=== PATIENT | female | born 1980 | race African-American/Black ===

== ENCOUNTER 2020-05-08 17:40 | Emergency (ER) | payer BC, SELFPAY ==
--- NOTE | ~2020-05-08 | CT_ITS ---
EXAMINATION: CT brain wo con DATE: 05/08/2020 20:39 INDICATION: Persistent headache TECHNIQUE: Computed tomography (CT) of the head was performed without intravenous contrast. Sagittal and coronal reconstructions were performed. The mA was adjusted according to patient size. Iterative reconstruction technique was employed. The dose-length product was 605.33 mGy-cm. COMPARISON: CT sinuses dated 11/17/2012 FINDINGS: No acute intracranial hemorrhage, acute infarction or abnormal extra axial fluid collection. Ventricl es are normal and symmetric. No mass/mass effect. The orbits, paranasal sinuses and mastoid air cells are normal. Unchanged dural ossification along the falx. IMPRESSION: 1. Normal brain. No acute intracranial process. Reviewed, dictated and finalized at location A. [employer]
[2020-05-08 17:53] VITALS: BP 116/76; PULSE 99; RESP 20; TEMP 37.2; O2SAT 98
--- NOTE | 2020-05-08 20:28 | ED.HA ---
HPI - Headache General Chief Complaint: Headache Stated Complaint: KIRKPATRICK Time Seen by Provider: 05/08/20 19:57 Source: patient Mode of arrival: ambulatory Limitations: no limitations History of Present Illness HPI Narrative: A 39-year-old female presents to the emergency department with complaints of a persistent headache. The patient states that this has been going on for the last couple of months. She states she has tried everything and is not getting any relief. Patient even notes today that she has taken in total 1600 mg of ibuprofen, several Tylenol, different muscle relaxers, tramadol and Fioricet. She states none of these have worked to phase her headache. Related Data Home Medications Medication Instructions Recorded Confirmed biotin 10,000 mcg disintegrating 10,000 mcg PO DAILY 05/16/19 tablet cetirizine 10 mg capsule 10 mg PO DAILY 05/16/19 cyanocobalamin (vitamin B-12) 100 mcg SUB-Q MONTHLY 05/16/19 1,000 mcg/mL injection kit esomeprazole magnesium 20 mg 20 mg PO DAILY 05/16/19 capsule,delayed release etonogestrel 0.12 mg-ethinyl 1 vag ring VAGINAL ONCE 05/16/19 estradiol 0.015 mg/24 hr vaginal ring Allergies Allergy/AdvReac Type Severity Reaction Status Date / Time No Known Allergies Allergy Verified 05/08/20 19:51 Review of Systems Review of Systems: Narrative: CONSTITUTIONAL: Denies fever, chills, or sweats. EYES: Denies visual changes, redness, or discharge. ENT: Denies rhinorrhea, congestion, sore throat, or otalgia. CARDIOVASCULAR: Denies chest pain, palpitations, or edema. RESPIRATORY: Denies cough or dyspnea. GASTROINTESTINAL: Denies abdominal pain, nausea, vomiting, or diarrhea. GENITOURINARY: Denies dysuria or hematuria. SKIN: Denies rash or itching. MUSCULOSKELETAL: Denies back pain, joint pain, or myalgia. NEUROLOGIC: Denies numbness, dizziness, or weakness. Endorses KIRKPATRICK. PSYCHIATRIC: Denies anxiety or depression. 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 HEAD: Normocephalic, atraumatic. EYES: PERRLA and EOMI. ENT: Nares clear, no rhinorrhea or epistaxis. Mucous membranes moist. Oropharynx without tonsillar hypertrophy exudate or other lesions. Bilateral TMs pearly nolasco nonbulging NECK: Supple. No adenopathy or masses. No carotid bruits or JVD CHEST: Clear to auscultation. No respiratory distress. No wheezes rales or rhonchi HEART: Regular rate and rhythm. No murmur heard. Normal peripheral pulses. ABDOMEN: Soft, nontender, nondistended, normal active bowel sounds. EXTREMITIES: Normal range of motion. No edema. SKIN: Warm, dry, no rash. NEURO: No focal deficits. Alert and oriented x3. PSYCH: Normal mood and affect. Course Reevaluation(s) Reevaluation #1: Patient was resting comfortably. I went to go evaluate and update her. Informed her of her negative CT findings. Patient stated that actually her headache was approximately 50% better. It is unclear if it was the medicines that I had given or the suboccipital release, osteopathic treatment that I administered. Patient noted either way she was feeling much better and needed to get home to her children. Time: 21:17 Vital Signs Vital signs: Vital Signs Temperature 37.2 C 05/08/20 17:53 Pulse Rate 99 05/08/20 17:53 Respiratory Rate 20 05/08/20 17:53 Blood Pressure 116/76 05/08/20 17:53 Pulse Oximetry 98 05/08/20 17:53 Temperature 37.2 C 05/08/20 17:53 Pulse Rate 73 05/08/20 20:58 Respiratory Rate 15 05/08/20 20:58 Blood Pressure 101/75 05/08/20 20:58 Pulse Oximetry 98 05/08/20 20:58 MDM - Headache MDM Narrative Medical decision making narrative: In brief this is a 39-year-old female who presented to the emergency department with complaints o
[2020-05-08] MEDS: diphenhydrAMINE HCl INJ 50 MG/ML VIAL 25 MG IV PUSH (20:57)
[2020-05-08] MEDS: KETOROLAC 30 MG/ML VIAL (*BKC) IV PUSH (20:57)
[2020-05-08] MEDS: PROCHLORPERAZINE EDISYLATE 10 MG/2 ML VIAL 5 MG IV PUSH (20:57)
[2020-05-08 20:58] VITALS: BP 101/75; PULSE 73; RESP 15; O2SAT 98
[2020-05-08] MEDS: LACTATED RINGERS 1,000 ML 999 ML IV CONT (20:58)
[2020-05-08 21:36] VITALS: BP 112/73; PULSE 71; RESP 15; O2SAT 97
== END 2020-05-08 21:37 | disposition home or self-care (01) ==
PROVIDERS: Emergency Provider Emergency Medicine; PCP Family Medicine
DX: G44.209 Tension-type headache, unspecified, not intractable (principal)
CPT/HCPCS: 70450; 81025; 96361; 96374; 96375; 99284; J0780; J1200; J1885; J7120

== ENCOUNTER 2021-12-28 13:58 | Emergency (ER) | payer OTHER, BC, SELFPAY ==
--- NOTE | ~2021-12-28 | XR_ITS ---
EXAM: XR knee LT min 4V DATE: 12/28/2021 14:22 HISTORY: FALL, LT KNEE PAIN . COMPARISON: None available. FINDINGS: Normal mineralization. No fracture or dislocation. No lytic or blastic lesion. Mild tricom partmental osteoarthritis. No erosion or periosteal change. Soft tissues within normal limits. Small volume left knee joint effusion. IMPRESSION: No acute osseous finding in the left knee. Reviewed, dictated and finalized at location K.
[2021-12-28 14:11] VITALS: BP 112/75; PULSE 94; RESP 16; TEMP 36.7; O2SAT 99
--- NOTE | 2021-12-28 14:41 | ED.LOWEXIN ---
HPI - Extremity Injury (Lower) General Chief Complaint: Extremity Injury, Lower Stated Complaint: Fall Injury Left Knee Pain Time Seen by Provider: 12/28/21 14:41 History of Present Illness HPI Narrative: Mary Quesada is a 40 yo female with hypothyroid and GERD who [facility] after a fall on night and hurt Left knee-has been wearing a brace since then Related Data Home Medications Medication Instructions Recorded Confirmed cetirizine 10 mg capsule (Zyrtec) 10 mg PO DAILY 05/16/19 12/28/21 cyanocobalamin (vitamin B-12) 100 mcg subcut MONTHLY 05/16/19 12/28/21 1,000 mcg/mL injection kit esomeprazole magnesium 20 mg 20 mg PO DAILY 05/16/19 12/28/21 capsule,delayed release (Nexium) etonogestrel 0.12 mg-ethinyl 1 vag ring vaginal ONCE 05/16/19 12/28/21 estradiol 0.015 mg/24 hr vaginal ring (NuvaRing) Allergies Allergy/AdvReac Type Severity Reaction Status Date / Time No Known Allergies Allergy Verified 12/28/21 14:12 Review of Systems Review of Systems: CONSTITUTIONAL: Denies fever, chills, sweats. EYES: Denies visual changes, redness, discharge. ENT: Denies rhinorrhea, congestion, sore throat, otalgia. CARDIOVASCULAR: Denies chest pain, palpitations, edema. RESPIRATORY: Denies dyspnea, wheezing, cough GASTROINTESTINAL: Denies abdominal pain, nausea, vomiting, diarrhea. GENITOURINARY: Denies dysuria, hematuria, abnormal discharge SKIN: Denies rash or itching. NEUROLOGIC: Denies numbness, or focal weakness. PSYCHIATRIC: Denies anxiety or depression. 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 There is no relevant family history pertinent to the presenting complaint. Exam Narrative: GENERAL: This is a well-nourished, well-developed patient, in mild distress. HEAD: normocephalic, atraumatic. EYES: PERRL. Sclera clear/white. Vision is grossly intact. EARS: External ears normal, auditory canals clear and without drainage, TMs normal without perforation. Hearing grossly intact. NOSE: External nose normal without nasal discharge, nares without redness, no rhinorrhea. THROAT: Mucous membranes moist, posterior pharynx NECK: Neck supple, non-tender CARDIOVASCULAR: Regular rate and rhythm without murmurs, gallops, or rubs. RESPIRATORY: Clear to auscultation. Breath sounds equal bilaterally. No wheezes, rales, or rhonchi. GASTROINTESTINAL: Abdomen soft, non-tender, SKIN: warm, intact with no suspicious lesions or rash, good texture and turgor. NEURO: awake, alert, and oriented to person, place and time. There were no obvious focal neurologic abnormalities. Steady gait EXTREMITIES: Normal range of motion. Left extension of knee to about 135, flex to 90 degrees, pain in both the medial and lateral side of patella BACK: Nontender without deformity Course Course Emergency Course: Patient fell left on and states that her leg twisted when she fell on night has pain on the medial and lateral side of the patella and cannot fully extend her flex knee X-ray negative for osseous finding To continue to use knee brace and RICE and if does not improve to follow-up with orthopedic referral Level of Care: Express Care Visit Vital Signs Vital signs: Vital Signs Temperature 98.1 F 12/28/21 14:11 Pulse Rate 94 12/28/21 14:11 Respiratory Rate 16 12/28/21 14:11 Blood Pressure 112/75 12/28/21 14:11 Pulse Oximetry 99 12/28/21 14:11 Oxygen
== END 2021-12-28 15:10 | disposition home or self-care (01) ==
PROVIDERS: Emergency Provider Nurse Practitioner; PCP Family Medicine
DX: S83.92XA Sprain of unspecified site of left knee, initial encounter (principal); W19.XXXA Unspecified fall, initial encounter; E03.9 Hypothyroidism, unspecified; E28.2 Polycystic ovarian syndrome; E66.9 Obesity, unspecified; Z68.32 Body mass index [BMI] 32.0-32.9, adult
CPT/HCPCS: 73564; 99213; G0463

== ENCOUNTER 2022-08-13 10:12 | Emergency (ER) | payer BC, SELFPAY ==
--- NOTE | ~2022-08-13 | XR_ITS ---
XR knee RT 3V DATE: 08/13/2022 11:15 INDICATION: Right knee pain. No injury. TECHNIQUE: AP, lateral, sunrise views COMPARISON: None FINDINGS: There is prominent distention of the suprapatellar bursa consistent with knee joint effusio n. No fracture or dislocation, periosteal reaction or bone destruction. There is slight periarticular sp urring of the medial tibial plateau consistent with mild osteoarthritis. IMPRESSION: Prominent knee joint effusion Mild medial compartment osteoarthritis Reviewed, dictated and finalized at location B.
[2022-08-13 10:31] VITALS: BP 97/69; PULSE 88; RESP 12; TEMP 36.5; O2SAT 99
--- NOTE | 2022-08-13 10:45 | ED.EXTPRO ---
HPI - Extremity Problem General Chief complaint: Extremity Problem,Nontraumatic Stated complaint: right knee pain Time Seen by Provider: 08/13/22 10:45 Source: patient Mode of arrival: ambulatory Limitations: no limitations History of Present Illness HPI Narrative: 42-year-old female presented for complaint right knee pain since yesterday. Denies injury. States she felt mild pain during routine exercise yesterday. States she was able to walk throughout the day yesterday but felt some mild popping, and woke today with worse pain. Rates pain 6/10 at rest, 10/10 with ambulating. Feels like she cannot bear weight. Also states she had a large knot to the lateral aspect, which has improved. Pain is located to the medial aspect. Denies swelling, numbness, tingling, or weakness of the extremity. She has applied ice, used a knee brace, and is taking Tylenol and ibuprofen. Related Data Home Medications Medication Instructions Recorded Confirmed cetirizine 10 mg capsule (Zyrtec) 10 mg PO DAILY 05/16/19 12/28/21 cyanocobalamin (vitamin B-12) 100 mcg subcut MONTHLY 05/16/19 12/28/21 1,000 mcg/mL injection kit esomeprazole magnesium 20 mg 40 mg PO BID 05/16/19 12/28/21 capsule,delayed release (Nexium) etonogestrel 0.12 mg-ethinyl 1 vag ring vaginal ONCE 05/16/19 12/28/21 estradiol 0.015 mg/24 hr vaginal ring (NuvaRing) metformin 500 mg tablet,extended mg PO 08/13/22 08/13/22 release 24 hr semaglutide (weight loss) 0.5 mg subcut 08/13/22 08/13/22 mg/0.5 mL subcutaneous pen injector (Wegovy) ursodiol 300 mg capsule mg 08/13/22 08/13/22 Allergies Allergy/AdvReac Type Severity Reaction Status Date / Time No Known Allergies Allergy Verified 08/13/22 10:35 Review of Systems Review of Systems: CONSTITUTIONAL: Denies body aches, fever, chills EYES: Denies visual changes ENT: Denies rhinorrhea, congestion CARDIOVASCULAR: Denies chest pain, palpitations, or edema. RESPIRATORY: Denies cough or dyspnea. GASTROINTESTINAL: Denies abdominal pain, nausea, vomiting, or diarrhea. SKIN: Denies rash, itching, or wounds. MUSCULOSKELETAL: Per HPI NEUROLOGIC: Denies headache, numbness, tingling, or weakness. 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 Please see nursing chart for further information. There is no relevant family history pertinent to the presenting complaint Exam Narrative: GENERAL: Appears in pain; in no acute distress. HEAD: Normocephalic, atraumatic. EYES: PERRLA, conjunctivae clear NECK: Supple. CHEST: Speaks in full sentences. No respiratory distress. HEART: Regular rate and rhythm. Normal and equal peripheral pulses. EXTREMITIES: Right medial knee tender with palpation. RLE has normal strength and sensation, slightly limited range of motion at knee with flexion/extension due to pain, endorses medial knee pain with internal foot rotation. No swelling or ecchymosis, No open wounds, or obvious deformity; alignment normal, pulse palpable and equal bilaterally, skin warm, dry, pink. Capillary refill less than 3 seconds. Ambulates with limp. SKIN: Warm, dry, no rash. NEURO: Alert and oriented x3. PSYCH: Normal mood and affect Course Course Emergency Course: Patient is aware of diagnosis, understands and agrees to treatment plan. Anticipatory guidance given. Patient agrees to
== END 2022-08-13 11:33 | disposition home or self-care (01) ==
PROVIDERS: Emergency Provider Nurse Practitioner Family; PCP Family Medicine
DX: M25.561 Pain in right knee (principal); E03.9 Hypothyroidism, unspecified; E28.2 Polycystic ovarian syndrome; E66.9 Obesity, unspecified; Z68.31 Body mass index [BMI] 31.0-31.9, adult
CPT/HCPCS: 73562; 99213; G0463

== ENCOUNTER → 2023-02-02 13:32 | Outpatient (CLI) | payer BC, SELFPAY ==
--- NOTE | ~2023-02-02 | US_ITS ---
EXAMINATION: US transvaginal DATE: 02/02/2023 14:21 INDICATION: Left lower quadrant pain. History of cysts. Comparison:No prior studies for comparison. TECHNIQUE: Multiple endovaginal sonographic images of the pelvis performed. FINDINGS: The uterus measures 7.4 x 3.1 x 4.2 cm. There is trace fluid in the endometrium. The endome trial complex measures 4 mm. The right ovary is not visualized. Left ovary measures 2.9 x 2.6 x 2 cm. There is a 2.5 cm left ovari an cyst. There is no free fluid in the pelvis. There are no abnormal masses seen on either side. IMPRESSION: 1. Left ovarian cyst measuring 2.5 cm. Reviewed, dictated and finalized at location B.
== END ==
PROVIDERS: PCP Family Medicine; Visit Provider Advanced Practice Midwife
DX: R10.32 Left lower quadrant pain (principal); N83.202 Unspecified ovarian cyst, left side
CPT/HCPCS: 76830

== ENCOUNTER → 2023-04-23 13:15 | Outpatient (CLI) | payer BC, SELFPAY ==
--- NOTE | ~2023-04-23 | MM_ITS ---
EXAMINATION: MM screening jagjit BI w preet HISTORY: Screening mammogram TECHNIQUE: Craniocaudal and mediolateral oblique 3-D tomosynthesis images were obtained and synthetic 2-D images were generated. CAD analysis was submitted and interpreted. COMPARISON: No prior mammogram is available for comparison at this institution. BREAST PARENCHYMAL COMPOSITION: The breasts are almost entirely fatty. FINDINGS: There is no evidence of suspicious mass, calcification, or architectural distortion to sugg est malignancy in either breast. There has been no suspicious interval change. IMPRESSION: 1. No mammographic evidence of malignancy. 2. Recommend routine screening mammography in one year. BI-RADS Category 1: Negative Reviewed, dictated and finalized at location A. [employer]
== END ==
PROVIDERS: PCP Obstetrics & Gynecology Gynecology; Visit Provider Obstetrics & Gynecology Gynecology
DX: Z12.31 Encounter for screening mammogram for malignant neoplasm of breast (principal)
CPT/HCPCS: 77063; 77067

== ENCOUNTER 2023-09-02 14:50 | Emergency (ER) | payer BC, SELFPAY ==
[2023-09-02 15:00] VITALS: BP 103/81; PULSE 84; RESP 16; TEMP 36.8; O2SAT 98
--- NOTE | 2023-09-02 15:00 | ED.EYEPROB ---
HPI - Eye Problem General Chief complaint: Eye Problems Stated complaint: Eyes Irritation Time Seen by Provider: 09/02/23 14:52 Source: patient Mode of arrival: ambulatory Limitations: no limitations History of Present Illness HPI Narrative: Radha is a 43-year-old female patient presenting to the clinic today with complaints eye irritation that just started last night. She reports she is having some white discharge coming from the bilateral eyes with irritation and redness. Does report some congestion. Eyes were matted shut this morning. No fever or chills Related Data Home Medications Medication Instructions Recorded Confirmed cetirizine 10 mg capsule (Zyrtec) 10 mg PO DAILY 05/16/19 12/28/21 cyanocobalamin (vitamin B-12) 100 mcg subcut MONTHLY 05/16/19 12/28/21 1,000 mcg/mL injection kit esomeprazole magnesium 20 mg 40 mg PO BID 05/16/19 12/28/21 capsule,delayed release (Nexium) etonogestrel 0.12 mg-ethinyl 1 vag ring vaginal ONCE 05/16/19 12/28/21 estradiol 0.015 mg/24 hr vaginal ring (NuvaRing) metformin 500 mg tablet,extended mg PO 08/13/22 08/13/22 release 24 hr semaglutide (weight loss) 0.5 mg subcut 08/13/22 08/13/22 mg/0.5 mL subcutaneous pen injector (Wegovy) ursodiol 300 mg capsule mg 08/13/22 08/13/22 levothyroxine 75 mcg tablet mcg 09/02/23 (Synthroid) montelukast 10 mg tablet mg 09/02/23 ursodiol 500 mg tablet mg 09/02/23 Allergies Allergy/AdvReac Type Severity Reaction Status Date / Time No Known Allergies Allergy Verified 09/02/23 15:01 Review of Systems Review of Systems: Pertinent positives per HPI. Patient denies any fever, chills, rash, headache, visual changes, dizziness, cough, shortness of breath, chest pain, palpitations, nausea, vomiting, diarrhea, constipation, abdominal pain, or any urinary issues. 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 There is no relevant family history pertinent to the patient complaint. Exam Narrative: General: Well-developed, well nourished, in no apparent distress Head: Normocephalic, atraumatic Eyes: Pupils equally round and reactive to light bilaterally, EOM intact, sclera and conjunctive injected bilaterally, bilateral lid swelling, whitish yellow mucopurulent discharge Ears: TMs intact and clear, ear canals clear, no drainage, grossly hearing normal. Nose: Nares patent, no discharge, no inflammation, no sinus tenderness. Mouth: Oral pharynx without lesions or masses, good dentition, MMM. Neck: Supple, trachea midline, no enlargement of anterior or posterior cervical nodes, no thyroid masses or goiter palpable. Cardio: Regular rate and rhythm, s1 and s2 normal, no murmur appreciated. Resp: Clear to auscultation bilaterally, no rhonchi, rales, wheezing or rubs Course Course Emergency Course: Portions of this record may have been created with voice recognition software. Level of Care: Express Care Visit Vital Signs Vital signs: Vital signs reviewed MDM - Eye Problem MDM Narrative Medical decision making narrative: At the time of visit patient is resting comfortably on the exam table. Patient appears to be nontoxic. Plan: I suspect patient has conjunctivitis. Prescription for Polytrim eyedrops was sent to the pharmacy. Supportive measures were discussed with the patient and they voiced understanding discharge instructions and agrees to treatment plan. Return
== END 2023-09-02 15:14 | disposition home or self-care (01) ==
PROVIDERS: Emergency Provider Nurse Practitioner Family; PCP Obstetrics & Gynecology Gynecology
DX: H10.33 Unspecified acute conjunctivitis, bilateral (principal); E03.9 Hypothyroidism, unspecified; E66.9 Obesity, unspecified; Z68.30 Body mass index [BMI] 30.0-30.9, adult; E28.2 Polycystic ovarian syndrome
CPT/HCPCS: 99213; G0463

== ENCOUNTER 2024-06-03 12:05 | Emergency (ER) | payer BC, SELFPAY ==
[2024-06-03 12:21] VITALS: BP 122/69; PULSE 88; RESP 16; TEMP 37.2; O2SAT 100
--- NOTE | 2024-06-03 13:07 | ED.GENADULT ---
HPI - General Adult General Chief complaint: Shortness of Breath/Dyspnea Stated complaint: chest pain,SOB Time Seen by Provider: 06/03/24 13:44 Source: patient, RN notes reviewed and old records reviewed Mode of arrival: ambulatory Limitations: no limitations History of Present Illness HPI narrative: Patient presents with complaints of chest wall pain that has been intermittent for the past 3-4 days. She reports that pain is reproducible with palpation. Pain is not related to activity or food intake. Patient states that she is not having this pain at all today. She does report chronic asthma cough. Says that this does not seem to contribute to her discomfort. She is not in any distress Related Data Home Medications ?Medication ?Instructions ?Recorded ?Confirmed ?Last Taken ?Type cetirizine 10 mg capsule (Zyrtec) 10 mg PO DAILY 05/16/19 09/02/23 Unknown History esomeprazole magnesium 20 mg 40 mg PO BID 05/16/19 09/02/23 Unknown History capsule,delayed release (Nexium) etonogestrel 0.12 mg-ethinyl 1 vag ring vaginal ONCE 05/16/19 09/02/23 Unknown History estradiol 0.015 mg/24 hr vaginal ring (NuvaRing) metformin 500 mg tablet,extended 500 mg PO DAILY 08/13/22 09/02/23 Unknown History release 24 hr montelukast 10 mg tablet 10 mg PO DAILY 09/02/23 09/02/23 Unknown History ursodiol 500 mg tablet 500 mg PO DAILY 09/02/23 09/02/23 Unknown History cyanocobalamin (vitamin B-12) 100 mcg subcut WEEKLY 12/18/23 Unknown History 1,000 mcg/mL injection solution fenofibrate 160 mg tablet mg 06/03/24 Unknown History Allergies Allergy/AdvReac Type Severity Reaction Status Date / Time No Known Allergies Allergy Verified 06/03/24 12:23 Review of Systems Review of Systems: All systems reviewed & are unremarkable except as noted in HPI and below Constitutional: Constitutional: Reports no additional constitutional complaints ENT: Reports system reviewed and no additional complaints, except as documented Cardiovascular: Cardiovascular: Reports no additional cardiovascular complaints Respiratory: Respiratory: Reports no additional respiratory complaints Gastrointestinal: Gastrointestinal: Reports no additional gastrointestinal complaints Musculoskeletal: Musculoskeletal: Reports as per HPI [facility] Past Medical History Medical History Red blood cell antibody positive, 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 There is no relevant family history pertinent to the patient complaint. Exam Const: General: cooperative, no acute distress, alert and awake Orientation/consciousness: oriented to person, oriented to place and oriented to time HENMT: Head: normal to inspection Resp: Effort & Inspection: normal respiratory effort and able to speak in complete sentences Auscultation: clear to auscultation bilaterally, no crackles, no rales, no rhonchi and no wheezes Cardio: Palpation: normal PMI Rate: regular rate Rhythm: regular rhythm Heart sounds: S1 normal heart sound present and S2 normal heart sound present GI: Abdomen image:  1. Tenderness on palpation, patient states this is what she has been feeling for the past 3-4 days Neuro: General: oriented to person, oriented to place and oriented to time Cranial nerves: Yes CN's II-XII intact bilaterally Psych: Appearance: grossly normal Thought process: Normal thought process present Insight: Good insight present (Psych) Judgement: Good judgement present (Psych) Course Course Level of Care: Express Care Visit Vital Signs Vital signs: Vital Signs Temperature 99.0 F 06/03/24 12:21 Pulse Rate 88 06/03/24 12:21 Respiratory Rate 16 06/03/24 12:21 Blood Pressure 122/69 06/03/24 12:21 Pulse Oximetry 100 06/03/24 12:21 Oxygen Delivery Room Air 06/03/24 12:21 Temperature 99.0 F 06/03/24 12:21 Pulse Rate 88 06/03/24 12:21 Respiratory Rate 16 06/03/24 12:21 Blood Pressure 122/69 06/03/24 12:21 Pulse Oximetry 100 06/03/24 12:21 Oxygen Delivery Room Air 06/03/24 12:21 Reviewed Medical Decision Making MDM Narrative Medical decision making narrative: Discussed with patient that reproducible chest pain is very reassuring. She be him it will E denies having any chest pain at this time. She is advised that if she develops chest pain she should immediately call 911 and proceed to nearest emergency department Discharge instructions reviewed with patient, as well as provided in writing per nursing staff. The instructions also include specific and strict return/GO TO THE ER as well as f/u information. All questions have been answered, and the patient deny any further questions with discharge and discharge plan. Some parts of this dictation were generated by voice recognition software and may contain typographical and/or grammatical inaccuracies. Vital Signs Vital Signs: Vital Signs Temperature 99.0 F 06/03/24 12:21 Pulse Rate 88 06/03/24 12:21 Respiratory Rate 16 06/03/24 12:21 Blood Pressure 122/69 06/03/24 12:21 Pulse Oximetry 100 06/03/24 12:21 Oxygen Delivery Room Air 06/03/24 12:21 Temperature 99.0 F 06/03/24 12:21 Pulse Rate 88 06/03/24 12:21 Respiratory Rate 16 06/03/24 12:21 Blood Pressure 122/69 06/03/24 12:21 Pulse Oximetry 100 06/03/24 12:21 Oxygen Delivery Room Air 06/03/24 12:21 reviewed Lab Data Lab results reviewed: Yes I reviewed the patient's lab results. Lab results narrative: reviewed Discharge Plan Discharge Clinical Impression: Chest wall pain Patient Disposition: Home, Self-Care Condition: Stable Instructions: Antibiotic Form, Chest Wall Pain (ED) Additional Instructions: Follow-up with primary care provider. Emergency department immediately for chest pain Patient Language: Albanian Prescriptions: No Action fenofibrate 160 mg tablet metformin 500 mg tablet extended release 24 hr 500 mg PO DAILY montelukast 10 mg tablet 10 mg PO DAILY ursodiol 500 mg tablet 500 mg PO DAILY polymyxin B sulf-trimethoprim 10,000 unit- 1 mg/mL drops 1 drp EACH EYE Q3H 7 Days Qty: 10 0RF Rx Instructions: while awake; do not exceed 6 doses in 24 hours etonogestrel-ethinyl estradiol [NuvaRing] 0.12-0.015 mg/24 hr ring 1 vag ring VAGINAL ONCE esomeprazole magnesium [Nexium] 20 mg capsule,delayed release(DR/EC) 40 mg PO BID Zyrtec 10 mg capsule 10 mg PO DAILY cyanocobalamin (vitamin B-12) 1,000 mcg/mL solution 100 mcg subcut WEEKLY Wegovy 2.4 mg/0.75 mL pen injector 2.4 mg subcut WEEKLY Qty: 9 0RF levothyroxine [Synthroid] 75 mcg tablet 75 mcg PO DAILY Qty: 90 2RF Follow-up/Referrals: Ashley Cardoza MD [Primary Care Provider] - 2 Weeks Time of Disposition: 13:52
== END 2024-06-03 13:55 | disposition home or self-care (01) ==
PROVIDERS: Emergency Provider Nurse Practitioner Family; PCP Obstetrics & Gynecology Gynecology
DX: R07.89 Other chest pain (principal); E03.9 Hypothyroidism, unspecified; E28.2 Polycystic ovarian syndrome; E66.9 Obesity, unspecified; J45.909 Unspecified asthma, uncomplicated; Z68.27 Body mass index [BMI] 27.0-27.9, adult
CPT/HCPCS: 99211; G0463

== ENCOUNTER 2024-09-08 10:01 | Outpatient (CLI) | payer BC, SELFPAY ==
--- NOTE | ~2024-09-08 | MM_ITS ---
EXAMINATION: MM screening [facility] BI w preet HISTORY: Screening TECHNIQUE: Craniocaudal and mediolateral oblique 3-D tomosynthesis images were obtained and synthetic 2-D images were generated. CAD analysis was submitted and interpreted. COMPARISON: Comparison to multiple prior studies sequentially, with oldest reviewed study dated 03/28. BREAST PARENCHYMAL COMPOSITION: Not Dense: The breasts are almost entirely fatty. FINDINGS: There is no evidence of suspicious mass, calcification, or architectural distortion to sugg est malignancy in either breast. There has been no suspicious interval change. IMPRESSION: 1. No mammographic evidence of malignancy. 2. Recommend routine screening mammography in one year. BI-RADS Category 1: Negative Reviewed, dictated and finalized at location A.
== END 2024-09-08 10:02 | disposition home or self-care (01) ==
LOC: MICIMG 10:02
PROVIDERS: PCP Nurse Practitioner; Visit Provider Nurse Practitioner
DX: Z12.31 Encounter for screening mammogram for malignant neoplasm of breast (principal)
CPT/HCPCS: 77063; 77067

== ENCOUNTER 2024-11-06 08:56 | Emergency (ER) | payer BC, SELFPAY ==
--- NOTE | ~2024-11-06 | XR_ITS ---
Right Shoulder Technique: AP and scapular Y views were obtained. Clinical History: Pain Findings: No fracture or dislocation is seen. Osseous alignment is anatomic. The glenohumeral and acr omioclavicular joint spaces are preserved. Prominent calcification at the distal rotator cuff region is compatible with calcific tendinitis.. Impression: Extensive/prominent calcific tendinitis of the rotator cuff. Reviewed, dictated and finalized at location M. Impression: Extensive/prominent calcific tendinitis of the rotator cuff.
[2024-11-06 09:06] VITALS: BP 106/69; PULSE 94; RESP 16; TEMP 36.3; O2SAT 100
--- NOTE | 2024-11-06 09:46 | ED.EXTPRO ---
HPI - Extremity Problem General Chief complaint: Extremity Problem,Nontraumatic Stated complaint: Right Arm Pain patient presents to the [facility] with complaints of significant right shoulder pain that began 4 days ago. Patient noted she woke up from a nap and had significant pain in this shoulder. Patient reports using Tylenol, ibuprofen tramadol, lidocaine patches with of symptoms. Patient denies any falls or injury specifically to the shoulder. Patient does note she does do heavy weightlifting but during any of her normal lifting sessions did not have any pain or different symptoms. Patient does note pain that radiates down her arm and numbness in the entire hand which does improve with position changes. Noted several weeks ago did have similar symptoms in the left arm /shoulder that were not a significant but these resolved with [id number] medications. Related Data Home Medications ?Medication ?Instructions ?Recorded ?Confirmed ?Last Taken ?Type cetirizine 10 mg capsule (Zyrtec) 10 mg PO DAILY 05/16/19 09/02/23 Unknown History esomeprazole magnesium 20 mg 40 mg PO BID 05/16/19 09/02/23 Unknown History capsule,delayed release (Nexium) etonogestrel 0.12 mg-ethinyl 1 vag ring vaginal ONCE 05/16/19 09/02/23 Unknown History estradiol 0.015 mg/24 hr vaginal ring (NuvaRing) montelukast 10 mg tablet 10 mg PO DAILY 09/02/23 09/02/23 Unknown History ursodiol 500 mg tablet 500 mg PO DAILY 09/02/23 09/02/23 Unknown History cyanocobalamin (vitamin B-12) 100 mcg subcut WEEKLY 12/18/23 Unknown History 1,000 mcg/mL injection solution fenofibrate 160 mg tablet mg 06/03/24 Unknown History Allergies Allergy/AdvReac Type Severity Reaction Status Date / Time No Known Allergies Allergy Verified 11/06/24 09:14 Review of Systems Constitutional: Constitutional: Reports as per HPI, Denies chills, Denies fatigue, Denies fever(s) and Denies weakness Eyes: Eyes: Reports no additional eye complaints Cardiovascular: Cardiovascular: Reports no additional cardiovascular complaints Respiratory: Respiratory: Reports no additional respiratory complaints Gastrointestinal: Gastrointestinal: Reports no additional gastrointestinal complaints Genitourinary: Genitourinary: Reports no additional female genitourinary complaints Musculoskeletal: Musculoskeletal: Reports as per HPI, Reports arthralgias, Denies joint swelling and Denies muscle cramps Integumentary/Breasts: Skin/Breast: Reports as per HPI, Denies pruritus, Denies erythema and Denies rash Neurologic: Reports as per HPI, Denies vertigo, Denies dizziness, Denies headache(s), Reports numbness ( Right hand) and Denies weakness Psychiatric: Psychiatric: Reports no additional psychiatric complaints Endocrine: Endocrine: Reports no additional endocrine complaints Hematologic/Lymphatic: Hematologic/Lymphatic: Reports no additional hematologic/lymphatic complaints Allergic/Immunologic: Allergic/Immunologic: Reports no additional allergic/immunologic complaints REPLACED BY [facility] Past Medical History Medical History Red blood cell antibody positive, 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 Obesity (BMI 30.0-34.9) Insomnia Abnormal weight gain Abnormal liver function test Hypothyroidism (acquired) PCOS (polycystic ovarian syndrome) Social History Social History Smoking status: Never smoker Do You Feel Safe in your Home?: Yes Lack of Transportation: No Lack of Food: Never True Current Housing: I Have Housing Concerned About Future Housing: No Difficulty Paying Gas/Electric Bills: No Difficulty Paying for Meds: No Currently Unemployed: No Education: Master's Degree or Higher Occupation/Education: occupation Additional occupation/education comments: nurse practitioner at [employer] Const: General: healthy appearing and no acute distress Nutritional Appearance: well nourished Orientation/consciousness: patient oriented x3 Limitations: no limitations Neck: Neck: normal visual inspection and no lymphadenopathy Chest: Chest palpation & inspection: normal inspection of the chest Resp: Effort & Inspection: normal respiratory effort Auscultation: clear to auscultation bilaterally Cardio: Rate: regular rate Rhythm: regular rhythm Back/Spine/Pelvis: Back: no CVA tenderness Other: no cervical muscle tenderness, no cervical vertebral tenderness, neck range of motion normal. Skin: General skin exam: normal color Rashes: no rashes Wounds: no wounds Neuro: General: patient oriented x3 and moves all extremities Speech: normal speech Gait exam (Neuro): Normal gait present Extrem: Right upper extremity: shoulder/upper arm normal to inspection, tenderness over the deltoid bursa and other (posterior deltoid ), axillary nerve sensory function normal and abnormal ROM pain with active ROM and pain with passive ROM; inspection normal, no swelling, ROM limited, no abrasions, no lacerations, no ecchymosis, no crepitus, no foreign bodies, no penetrating wound, no deformity and no unusual warmth Psych: Mental Status: mental status grossly normal Affect: normal affect Attitude: cooperative Course Course Level of Care: Express Care Visit Vital Signs Vital signs: Vital Signs Temperature 97.4 F L 11/06/24 09:06 Pulse Rate 94 11/06/24 09:06 Respiratory Rate 16 11/06/24 09:06 Blood Pressure 106/69 11/06/24 09:06 Pulse Oximetry 100 11/06/24 09:06 Oxygen Delivery Room Air 11/06/24 09:06 Temperature 97.4 F L 11/06/24 09:06 Pulse Rate 94 11/06/24 09:06 Respiratory Rate 16 11/06/24 09:06 Blood Pressure 106/69 11/06/24 09:06 Pulse Oximetry 100 11/06/24 09:06 Oxygen Delivery Room Air 11/06/24 09:06 MDM - Extremity (Nontraumatic) MDM Narrative Medical decision making narrative: Toradol injection given in clinic today. X-rays ordered. Discharge instructions reviewed with patient, as well as provided in writing per nursing staff. The instructions also include specific and strict return/GO TO THE ER as well as f/u information. All questions have been answered, and the patient deny any further questions with discharge and discharge plan. Differential Diagnosis Differential diagnosis: Likely other ( Bursitis, muscle strain, cervical radiculopathy) Medical Records Attestation: I reviewed the patient's medical records. Imaging Data Attestation: I personally reviewed and interpreted this imaging study as follows: My impression: No acute fracture. Possible bone spur/abnormality noted off the proximal humerus Radiologist's impression: Impression: Extensive/prominent calcific tendinitis of the rotator cuff. Reviewed, dictated and finalized at [facility]. Discharge Plan Discharge Clinical Impression: Calcific tendinitis of shoulder region Qualifiers: Laterality: right Qualified Code(s): M75.31 - Calcific tendinitis of right shoulder Patient Disposition: Home Condition: Stable Instructions: Antibiotic Form, Calcific Tendinitis (ED), Exercises for Internal and External Shoulder Rotation (ED) Additional Instructions: Take the steroid burst as directed. And should use muscle relaxers as pain and spasms. This may get drowsy do, drink operate machinery medication. After 2 days on the steroids start gentle uarem-qj-gkowan exercises recommend follow-up with primary care to get started in physical therapy as well. Patient Language: Anguillan Prescriptions: New methocarbamol 750 mg tablet 750 mg PO TID Qty: 30 0RF methylprednisolone [Medrol (Chris)] 4 mg tablets,dose pack See Rx Instructions .ROUTE .COMPLEX Qty: 21 0RF Rx Instructions: for 6 days No Action fenofibrate 160 mg tablet montelukast 10 mg tablet 10 mg PO DAILY ursodiol 500 mg tablet 500 mg PO DAILY polymyxin B sulf-trimethoprim 10,000 unit- 1 mg/mL drops 1 drp EACH EYE Q3H 7 Days Qty: 10 0RF Rx Instructions: while awake; do not exceed 6 doses in 24 hours etonogestrel-ethinyl estradiol [NuvaRing] 0.12-0.015 mg/24 hr ring 1 vag ring VAGINAL ONCE esomeprazole magnesium [Nexium] 20 mg capsule,delayed release(DR/EC) 40 mg PO BID Zyrtec 10 mg capsule 10 mg PO DAILY cyanocobalamin (vitamin B-12) 1,000 mcg/mL solution 100 mcg subcut WEEKLY metformin 500 mg tablet extended release 24 hr 500 mg PO DAILY Qty: 90 1RF Wegovy 2.4 mg/0.75 mL pen injector 2.4 mg subcut WEEKLY Qty: 9 1RF levothyroxine [Synthroid] 75 mcg tablet 75 mcg PO DAILY Qty: 120 2RF Rx Instructions: 75 mcg daily and takes 2 pills on thursday total 8 pills per week Follow-up/Referrals: Jose,TYRELL Duarte [Primary Care Provider] - Time of Disposition: 10:42
[2024-11-06] MEDS: KETOROLAC (*BKC) 60 MG/2 ML VIAL IM (10:04)
== END 2024-11-06 10:45 | disposition home or self-care (01) ==
PROVIDERS: Emergency Provider Nurse Practitioner Family; PCP Physician Assistant
DX: M75.31 Calcific tendinitis of right shoulder (principal); E03.9 Hypothyroidism, unspecified; E28.2 Polycystic ovarian syndrome; E66.9 Obesity, unspecified; Z68.28 Body mass index [BMI] 28.0-28.9, adult
CPT/HCPCS: 73030; 96372; 99213; G0463; J1885

== ENCOUNTER 2024-12-16 10:47 | Outpatient (CLI) | payer BC, SELFPAY ==
--- NOTE | ~2024-12-16 | XR_ITS ---
XR shoulder LT min 2V 12/16/2024 11:15 Indication: Left arm pain Procedure: 4 views left shoulder Comparison: 12/16/2024 Findings: There is anatomic alignment. No fracture, subluxation or dislocation. No significant soft tissue abnormality. No foreign bodies. Impression: 1: No significant bone or joint abnormality. Reviewed, dictated and finalized at location O. Impression: 1: No significant bone or joint abnormality.
--- NOTE | ~2024-12-16 | XR_ITS ---
XR shoulder RT min 2V 12/16/2024 11:15 Indication: Right shoulder pain Procedure: 4 views right shoulder Comparison: 11/06/2024 Findings: There are calcifications adjacent to the greater tuberosity consistent with calcific tendinopathy. No fracture, subluxation or dislocation. No No foreign bodies. Impression: 1: Calcific tendinopathy of the right shoulder. Reviewed, dictated and finalized at location O. Impression: 1: Calcific tendinopathy of the right shoulder.
--- NOTE | ~2024-12-16 | XR_ITS ---
XR humerus LT 12/16/2024 11:15 INDICATION: Left shoulder pain PROCEDURE: 2 views left shoulder COMPARISON: 12/16/2024 FINDINGS: Fracture, dislocation or subluxation is not identified. The soft tissues appear within normal limits. No foreign bodies are identified. IMPRESSION: 1: NO ACUTE BONE OR JOINT ABNORMALITY IDENTIFIED. Reviewed, dictated and finalized at location O.
== END 2024-12-16 10:48 | disposition home or self-care (01) ==
LOC: MICIMG 10:49
PROVIDERS: PCP Family Medicine; Visit Provider Family Medicine
DX: M25.512 Pain in left shoulder (principal); M79.622 Pain in left upper arm; M75.31 Calcific tendinitis of right shoulder
CPT/HCPCS: 73030; 73060